=== PATIENT | male | born 1975 | race American Indian/Alaskan Native ===

== ENCOUNTER 2019-03-28 18:36 | Emergency (ER) | payer OTHER ==
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
[2019-03-28] MEDS ORDERED: FLEXERIL PO ONE (20:07)
[2019-03-28] MEDS ORDERED: TORADOL IM ONE (20:07)
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
[2019-03-28 21:31] VITALS: BP 128/76
== END 2019-03-28 21:32 | disposition home or self-care (01) ==
LOC: ED 18:36
DX: S16.1XXA Strain of muscle, fascia and tendon at neck level, initial encounter (principal); S39.012A Strain of muscle, fascia and tendon of lower back, initial encounter; Z86.718 Personal history of other venous thrombosis and embolism; Z79.01 Long term (current) use of anticoagulants; Z98.890 Other specified postprocedural states; Z79.899 Other long term (current) drug therapy
CPT/HCPCS: 72040; 72100; 96372; 99283; J1885

== ENCOUNTER 2019-04-01 00:25 | Emergency (ER) | payer OTHER ==
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
[2019-04-01 04:48] VITALS: BP 132/79
== END 2019-04-01 04:50 | disposition home or self-care (01) ==
LOC: ED 00:25
DX: S16.1XXD Strain of muscle, fascia and tendon at neck level, subsequent encounter (principal); S39.012D Strain of muscle, fascia and tendon of lower back, subsequent encounter; Z98.890 Other specified postprocedural states; Z86.718 Personal history of other venous thrombosis and embolism; V49.49XD Driver injured in collision with other motor vehicles in traffic accident, subsequent encounter

== ENCOUNTER 2022-05-01 12:11 | Emergency (ER) | payer SELFPAY | END 2022-05-01 12:15 | disposition left against medical advice (07) | LOC: ED 12:11 | DX: S61.419A Laceration without foreign body of unspecified hand, initial encounter (principal); Z53.21 Procedure and treatment not carried out due to patient leaving prior to being seen by health care provider; W26.8XXA Contact with other sharp object(s), not elsewhere classified, initial encounter; Y93.89 Activity, other specified; Y92.89 Other specified places as the place of occurrence of the external cause; Y99.8 Other external cause status ==